=== PATIENT | male | born 1995 | race Caucasian/White ===

== ENCOUNTER 2017-08-31 16:10 | Emergency (ER) | payer SELFPAY ==
[~2017-08-31] VITALS: Ht 180.3 cm; Wt 86.0 kg
[2017-08-31 17:36] LABS: KETONES URINE NEGATIVE (NEGATIVE); LEUKOCYTE ESTERASE URINE NEGATIVE (NEGATIVE); NITRITE URINE NEGATIVE (NEGATIVE); OCCULT BLOOD URINE NEGATIVE (NEGATIVE); PROTEIN URINE NEGATIVE (NEGATIVE); SPECIFIC GRAVITY URINE 1.006 (1.005-1.030); UROBILINOGEN URINE 0.2 E.U./dL (0.2-1.0)
[2017-08-31 17:38] LABS: CLARITY URINE CLEAR (CLEAR); COLOR URINE YELLOW (YELLOW)
[2017-08-31] MEDS ORDERED: SODIUM CHLORIDE 0.9% 1,000 ML IV ONE (18:57)
[2017-08-31] MEDS ORDERED: MAGNESIUM/ALUMINUM HYDROXIDE/SIMETHICONE 30ML UDC PO STA (18:57)
[2017-08-31] MEDS ORDERED: FAMOTIDINE 20MG/2ML VIAL IV STA (18:57)
[2017-08-31] MEDS ORDERED: ONDANSETRON HCL 4MG/2ML VIAL IV STA (18:57)
[2017-08-31] MEDS ORDERED: MORPHINE SULFATE 4 MG/ML CPJ (NOT FOR IM USE) IV STA (18:57)
[2017-08-31 19:27] LABS: BASOPHILS % 0.9 % (0.0-2.0); EOSINOPHILS % 4.3 % (0.0-5.0); HEMATOCRIT. 45.2 % (42.0-52.0); HEMOGLOBIN. 15.2 g/dL (14.0-18.0); LYMPHOCYTES % 36.4 % (20.0-50.0); MEAN CORPUSCULAR HEMOGLOBIN 28.5 pg (28.0-32.0); MEAN CORPUSCULAR VOLUME 84.6 fL (80.0-94.0); MONOCYTES % 5.3 % (2.0-8.0); NEUTROPHILS % 53.1 % (40.0-76.0); PLATELET 385 x1000/uL (130-400); RED BLOOD CELL COUNT 5.34 mill/uL (4.7-6.1); RED CELL DISTRIBUTION WIDTH 13.8 % (11.6-14.6)
[2017-08-31 19:33] LABS: INR 1.1; PROTHROMBIN TIME 11.1 sec (9.4-11.6)
[2017-08-31 19:34] LABS: CHLORIDE 105 mEq/L (98-107)
[2017-08-31 19:36] LABS: CARBON DIOXIDE 30 mEq/L (21-32)
[2017-08-31 20:00] VITALS: BP 124/71
== END 2017-08-31 21:18 | disposition home or self-care (01) ==
LOC: ER 16:42
DX: R10.31 Right lower quadrant pain (principal); R11.2 Nausea with vomiting, unspecified; F12.10 Cannabis abuse, uncomplicated; Z98.890 Other specified postprocedural states
CPT/HCPCS: 36415; 76705; 80053; 81003; 83690; 85025; 85610; 96361; 96374; 96375; 99285; J2270; J2405; J3490; J7030; Z7610

== ENCOUNTER 2024-02-17 12:39 | Emergency (ER) | payer BC, MEDICAID ==
[~2024-02-17] VITALS: Ht 177.8 cm; Wt 78.0 kg
[2024-02-17 13:11] VITALS: RESP 18
[2024-02-17 13:12] VITALS: BP 144/86; PULSE 75; TEMP 98.6; O2SAT 100
[2024-02-17 14:14] LABS: BASOPHILS % 0.7 % (0.0-2.0); EOSINOPHILS % 4.4 % (0.0-5.0); HEMATOCRIT. 42.1 % (42.0-52.0); HEMOGLOBIN. 13.7 g/dL (14.0-18.0); LYMPHOCYTES % 33.1 % (20.0-50.0); MEAN CORPUSCULAR HEMOGLOBIN 30.2 pg (28.0-32.0); MEAN CORPUSCULAR HGB CONC 32.6 g/dL (31.0-37.0); MEAN CORPUSCULAR VOLUME 92.6 fL (80.0-94.0); MONOCYTES % 7.2 % (2.0-8.0); NEUTROPHILS % 54.6 % (40.0-76.0); PLATELET 313 x1000/uL (130-400); RED BLOOD CELL COUNT 4.54 mill/uL (4.7-6.1); RED CELL DISTRIBUTION WIDTH 15.7 % (11.6-14.6); WHITE BLOOD COUNT 9.1 x1000/uL (4.5-11.0)
[2024-02-17 14:21] LABS: CHLORIDE 108 mEq/L (98-107); POTASSIUM 3.8 mEq/L (3.5-5.1); SODIUM 142 mEq/L (136-145)
[2024-02-17 14:22] LABS: CARBON DIOXIDE 29 mEq/L (21-32)
[2024-02-17 14:23] LABS: CALCIUM 9.8 mg/dL (8.7-10.4)
[2024-02-17 14:27] LABS: CREATININE 0.8 mg/dL (0.6-1.3); GLUCOSE 86 mg/dL (70-105); UREA NITROGEN BLOOD 10 mg/dL (9-23)
== END 2024-02-17 15:45 | disposition home or self-care (01) ==
LOC: ER 12:39
DX: R55 Syncope and collapse (principal); F12.90 Cannabis use, unspecified, uncomplicated; Z90.49 Acquired absence of other specified parts of digestive tract; Z98.890 Other specified postprocedural states
CPT/HCPCS: 36415; 71045; 80048; 82962; 85025; 93005; 99285

== ENCOUNTER 2024-10-20 22:18 | Emergency (ER) | payer BC ==
[~2024-10-20] VITALS: Ht 180.3 cm; Wt 82.0 kg
[2024-10-20 22:22] VITALS: BP 141/92; RESP 20; TEMP 36.9; O2SAT 98
[2024-10-20 22:24] VITALS: PULSE 105; O2SAT 99
[2024-10-20] MEDS ORDERED: LORAZEPAM 1MG TABLET PO ONE (23:00)
[2024-10-21] MEDS ORDERED: LORAZEPAM 1MG TABLET PO NR (00:15)
== END 2024-10-20 23:21 | disposition left against medical advice (07) ==
LOC: ER 22:18
DX: R07.9 Chest pain, unspecified (principal); R20.2 Paresthesia of skin; F12.90 Cannabis use, unspecified, uncomplicated; Z86.73 Personal history of transient ischemic attack (TIA), and cerebral infarction without residual deficits; Z87.19 Personal history of other diseases of the digestive system; Z90.49 Acquired absence of other specified parts of digestive tract
CPT/HCPCS: 71045; 93005; 99283